=== PATIENT | male | born 1990 | race Caucasian/White ===

== ENCOUNTER 2021-03-20 18:43 | Emergency (ER) | payer BC, OTHER ==
[2021-03-20] MEDS ORDERED: Lidocaine 1% 10 ML MDV INJECT ONE (19:07)
--- NOTE | 2021-03-20 19:09 | EDM.PDOC ---
ED HPI GENERAL MEDICAL PROBLEM - General Chief Complaint: Laceration Stated Complaint: LIP LAC Time Seen by Provider: 03/20/21 18:51 Source of Information: Reports: Patient, RN Notes Reviewed History Limitations: Reports: No Limitations - History of Present Illness INITIAL COMMENTS - FREE TEXT/NARRATIVE: Patient is a 31-year-old male presenting to the emergency department complaints of laceration below his left lower lip. Reports that he hit it on the corner of a table. He is up-to-date on his tetanus vaccination. - Related Data Allergies Allergy/AdvReac Type Severity Reaction Status Date / Time No Known Allergies Allergy Verified 03/20/21 18:50 Home Meds: Home Meds . [Unable to Verify Home Med List] 03/20/21 [History] Past Medical History Respiratory History: Reports: Sleep Apnea Other Respiratory History: uses CPAP at night - Past Surgical History HEENT Surgical History: Reports: Oral Surgery Musculoskeletal Surgical History: Reports: Other (See Below) Other Musculoskeletal Surgeries/Procedures:: 2 left wrist surgeries, 2 left knee surgeries Social & Family History - Tobacco Use Tobacco Use Status *Q: Never Tobacco User Second Hand Smoke Exposure: No - Recreational Drug Use Recreational Drug Use: No ED ROS GENERAL - Review of Systems Review Of Systems: Comprehensive ROS is negative, except as noted in HPI. ED EXAM, SKIN/RASH Exam: See Below General Appearance: Alert, WD/WN, No Apparent Distress Respiratory/Chest: No Respiratory Distress, Lungs Clear, Normal Breath Sounds, No Accessory Muscle Use, Chest Non-Tender Cardiovascular: Normal Peripheral Pulses, Regular Rate, Rhythm, No Edema, No Gallop, No JVD, No Murmur, No Rub Neurological: Alert, Oriented, CN II-XII Intact, Normal Cognition, Normal Gait, Normal Reflexes, No Motor/Sensory Deficits Psychiatric: Normal Affect, Normal Mood Skin: Other (1 cm nongaping laceration below the left lip. Laceration is deep when pulled apart. Scant active bleeding) ED SKIN PROCEDURES - Laceration/Wound Repair below left lower lip Appearance: Subcutaneous Anesthetic Type: Local Local Anesthesia - Lidocaine (Xylocaine): 1% Plain Local Anesthetic Volume: 1cc Skin Prep: Providone-Iodine (Betadine), Saline, Sterile Drape Exploration/Debridement/Repair: Wound Explored, In a Bloodless Field, No Foreign Material Found Closed with: Sutures Lac/Wound length In cm: 1 Suture Size: 6-0 # of Sutures: 2 Suture Type: Nylon Sterile Dressing Applied: Nurse Tetanus Status Addressed: Yes Complications: No Course - Vital Signs Last Recorded V/S: Last Vital Signs Temp 97.5 F 03/20/21 18:47 Pulse 80 03/20/21 18:47 Resp 16 03/20/21 18:47 BP 159/102 H 03/20/21 18:47 Pulse Ox 99 03/20/21 18:47 - Orders/Labs/Meds Meds: Medications Discontinued Medications Generic Name Dose Route Start Last Admin Trade Name Carlotta PRN Reason Stop Dose Admin Lidocaine HCl 10 ml 03/20/21 19:07 03/20/21 19:49 Lidocaine 1% 10 Ml Mdv INJECT 03/20/21 19:08 10 ml ONETIME ONE Administration Departure - Departure Time of Disposition: 20:01 Disposition: Home, Self-Care 01 Condition: Good Clinical Impression: Laceration - Discharge Information *PRESCRIPTION DRUG MONITORING PROGRAM REVIEWED*: No *COPY OF PRESCRIPTION DRUG MONITORING REPORT IN PATIENT GERTRUDIS: No Instructions: Laceration Care, Adult Referrals: PCP,None [Primary Care Provider] - Forms: ED Department Discharge Additional Instructions: You were seen in the emergency department today for a laceration to below your left lower lip. The wound was cleansed and closed with 2 sutures. These should stay intact for 3-5 days. After that time they may be removed in the clinic by a nurse. The number to schedule a nurse visit for suture removal is [phone]. Keep the wound clean and dry. Wash with normal soap and water twice daily. Do not submerge the wound in water. Watch for signs of infection including increased redness, swelling, or purulent drainage. If these should occur, you should be seen either in the clinic or in the emergency department as antibiotic treatment may be needed. Return to the ER as needed. Sepsis Event Note (ED) - Focused Exam Vital Signs: Vital Signs Temp Pulse Resp BP Pulse Ox 03/20/21 18:47 97.5 F 80 16 159/102 H 99
== END 2021-03-20 20:10 | disposition home or self-care (01) ==
LOC: JD.ED 18:43
DX: S01.511A Laceration without foreign body of lip, initial encounter (principal); W22.09XA Striking against other stationary object, initial encounter
CPT/HCPCS: 12011; 99282; 99282-25

== ENCOUNTER 2023-07-05 20:57 | Emergency (ER) | payer BC ==
[2023-07-05] MEDS ORDERED: Diphtheria,Pertussis(Acell),Tetanus Vaccine 0.5 ML Syringe IM ONE (21:22)
[2023-07-05] MEDS ORDERED: Amoxicillin/Clavulanate K 875-125 MG Tab PO ONE (21:22)
== END 2023-07-05 22:07 | disposition home or self-care (01) ==
LOC: JD.ED 20:57
DX: S01.451A Open bite of right cheek and temporomandibular area, initial encounter (principal); Z23 Encounter for immunization; W54.0XXA Bitten by dog, initial encounter
CPT/HCPCS: 90471; 90715; 99283; A9270